=== PATIENT | female | born 1990 | race Caucasian/White ===

== ENCOUNTER 2017-10-20 11:28 | Day surgery (SDC) | payer OTHER ==
[2017-10-20] MEDS ORDERED: MIDAZOLAM 1 MG/ML 2 ML INJ (12:54)
[2017-10-20] MEDS ORDERED: LIDOCAINE 2% (SDV) 5 ML INJ (12:54)
[2017-10-20] MEDS ORDERED: PROPOFOL 20 ML (12:54)
== END 2017-10-20 16:06 | disposition home or self-care (01) ==
LOC: GIL 11:28
DX: K29.30 Chronic superficial gastritis without bleeding (principal); K21.9 Gastro-esophageal reflux disease without esophagitis; K44.9 Diaphragmatic hernia without obstruction or gangrene
CPT/HCPCS: 43239; 84703; 88305; 88312